=== PATIENT | female | born 1965 | race Caucasian/White ===

== ENCOUNTER → 2020-04-08 12:30 | Outpatient (CLI) | payer SELFPAY ==
[2020-03-23 14:01] VITALS: BMI 22.4
--- NOTE | 2020-04-08 12:39 | CT_ITS ---
STUDY: CARDIAC CALCIUM SCORING - CT CHEST REASON FOR EXAM: Female, 54 years old. PT STATED FAMILY HX CAD, CALCIUM SCORING OVER READ ONLY RADIATION DOSAGE (If Supplied By Facility): CTDIvol = ( 12.19 ) mGy, DLP = ( 170.66 ) mGycm TECHNIQUE: Axial non-enhanced images were acquired through the heart for the sole purpose of measuring coronary artery calcium. Individualized dose optimization techniques were used for this CT. COMPARISON: None. FINDINGS: Please see the patient''s medical record for a personalized calcium score. The visualized lungs are clear. The visualized soft tissues are within normal limits. CT/Limited Chest CT w/CCTA IMPRESSION: Please see the patient''s medical record for a personalized calcium score. Please go to: [email or web address] , for a description of the calculator. Electronically Signed: Adrian Dumont, at 17:31 EDT Tel , Service support ,
[2020-04-08 12:44] VITALS: BP 142/63; PULSE 62; RESP 18; TEMP 36.6; O2SAT 100; BMI 21.8
--- NOTE | 2020-04-08 16:31 | CA.SCORE ---
Calcium Scoring Date of Study:: 04/08/20 Coronary Calcium Scoring: High-resolution Computed Tomographic imaging of the chest was performed on 04/08/2020 with particular attention paid to the coronary arteries. Images from the examination were analyzed for the presence and extent of coronary artery calcification , using coronary calcium quantification software. The patient tolerated the procedure well and there were no complications. The results of the coronary calcification analysis are provided below. - Findings Left Main (LM): 0 Left Anterior Descending (LAD): 0 Left Circumflex (LCX): 0 Right Coronary Artery (RCA): 0 Total Agatston Score: 0 Calcium Scoring Interpretation: 0 No identifiable atherosclerotic plaque. Very low cardiovascular disease risk. <5% chance of presence coronary artery disease A Negative Examination 1-10 Minimal Plaque burden. Significant coronary artery disease very unlikely. 11-100 Mild plaque burden. Likely mild or minimal coronary atherosclerosis. 101-400 Moderate plaque burden Moderate non-obstructive coronary artery disease highly likely. Over 400 Extensive plaque burden. High likelihood of at least one significant coronary stenosis (>50% diameter) Calcium Score: 0 Negative Examination - Continue cardiovascular risk factor evaluation and care as deemed appropriate
== END ==
PROVIDERS: PCP Family Medicine; Referring Provider Physician Assistant Medical; Visit Provider Physician Assistant Medical
DX: R07.9 Chest pain, unspecified (principal); Z82.49 Family history of ischemic heart disease and other diseases of the circulatory system
CPT/HCPCS: 75571; 76380